=== PATIENT | female | born 1950 | race Caucasian/White ===

== ENCOUNTER 2019-03-04 10:22 | Emergency (ER) | payer MEDICARE, OTHER ==
[~2019-03-04] VITALS: Ht 162.6 cm; Wt 69.5 kg
[2019-03-04 10:30] VITALS: BP 169/87
--- NOTE | 2019-03-04 10:43 | NUR ---
Pt presents to ED today with c/o "hives on my hands, arms, and legs." Pt denies change in health, medications, or lifestyle. Pt states, "In January I was in [place], and then two weeks ago I was in [facility], I think I have been exposed to a lot of pollen." Pt denies sob, difficulty breathing, or swelling of tongue. Pt able to maintain airway and swallow own secreations. Pt able to speak in full sentences. Pt has numerous circular individual raised spots on skin that are approximately 5 cm in diameter and are red. NADN. No needs expressed. Call light within reach. Pt states, "I have been taking benadryl for the itching." Pt states, "It has been going on for two weeks."
[2019-03-04] MEDS ORDERED: FAMOTIDINE 20 MG TABLET ONE (10:57)
[2019-03-04] MEDS ORDERED: FAMOTIDINE 20 MG TABLET PO ONE (11:00)
--- NOTE | 2019-03-04 11:01 | NUR ---
Provided medication per [facility]. Pt appreciative. NADN. No other needs expressed.
--- NOTE | 2019-03-04 11:37 | NUR ---
Patient given discharge instructions and they have confirmed that they understand the instructions. Patient ambulatory with steady gait. Pt left with prescription, d/c paperwork, and all personal belongings.
== END 2019-03-04 11:39 | disposition home or self-care (01) ==
LOC: ED 11:28
DX: L50.9 Urticaria, unspecified (principal)
CPT/HCPCS: 99284; J7512; Q0177